=== PATIENT | female | born 1980 | race Caucasian/White ===

== ENCOUNTER 2020-03-31 10:29 | Emergency (ER) | payer OTHER ==
[~2020-03-31] VITALS: Ht 170.2 cm; Wt 79.4 kg
--- NOTE | 2020-03-31 11:38 | Diagnostic Imaging Report ---
EXAMINATION: CHEST SINGLE (PORTABLE) INDICATION: ^Y ^trauma ^[id number] ^[id number] COMPARISON: None FINDINGS: AP view TUBES and LINES: None. LUNGS: Lungs are well inflated. Lungs are clear. There is no evidence of pneumonia or pulmonary edema. PLEURA: No pleural effusion or pneumothorax. HEART AND MEDIASTINUM: The cardiomediastinal silhouette is unremarkable. BONES AND SOFT TISSUES: No acute osseous lesion. Soft tissues are unremarkable. UPPER ABDOMEN: No free air under the diaphragm. IMPRESSION: No acute thoracic radiographic abnormality. Signed by: Edenilson Montenegro MD on 03/31/2020 11:35 AM
--- NOTE | 2020-03-31 11:39 | Diagnostic Imaging Report ---
SHOULDER LEFT 1 VIEW - 3 views HISTORY: Pain. COMPARISON: None available. FINDINGS: Bones: No acute displaced fracture. Osseous alignment is within normal limits. Joints: Mild acromioclavicular arthrosis. Soft tissues: The soft tissues appear unremarkable. IMPRESSION: No acute radiographic abnormality. Signed by: Edenilson Montenegro MD on 03/31/2020 11:36 AM
[2020-03-31] MEDS ORDERED: HYDROCODONE/APAP 10MG-325MG TAB PO ONE (11:45)
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
[2020-03-31] MEDS ORDERED: ULTRAM50 MG PO (12:57)
[2020-03-31] MEDS ORDERED: AUGMENTIN 875-1 EACH PO (12:57)
[2020-03-31] MEDS ORDERED: TETANUS/DIPHTHERIA TOX ADULT 0.5 ML SYR IM ONE (13:00)
--- NOTE | 2020-03-31 13:36 | Diagnostic Imaging Report ---
Exam: Head CT without contrast History: Trauma Comparison studies: None Technique: Axial images were obtained from the skull base to the vertex. Coronal and sagittal images reconstructed from the axial data. Dose modulation, iterative reconstruction, and/or weight based adjustment of the mA/kV was utilized to reduce the radiation dose to as low as reasonably achievable. Radiation dose: Total DLP: 1210 mGy*cm. Estimated effective dose: DLP x 0.015 Intravenous contrast: None Findings: Scalp: Laceration with soft tissue defect in the right paramedian frontal scalp. No retained hyperdense foreign body. Bones: No fractures, blastic or lytic lesions. Brain sulci: Appropriate for age. Ventricles: Normal in size and configuration. No hydrocephalus. Extra-axial spaces: No masses, no fluid collection. Parenchyma: No abnormal densities. No masses, acute hemorrhage, acute or chronic vascular insults. Sellar/suprasellar region: No abnormalities. Craniocervical junction: Patent foramen magnum. No Chiari one malformation. IMPRESSION: 1. Right frontal scalp laceration. 2. No retained hyperdense foreign body, fracture or intracranial abnormality. Signed by: Dr. Surya Lawson M.D. on 03/31/2020 1:33 PM
--- NOTE | 2020-03-31 13:43 | Diagnostic Imaging Report ---
History: Trauma Comparison studies: None Technique: Axial images were obtained through the cervical region. Coronal and sagittal images reconstructed from the axial data. Dose modulation, iterative reconstruction, and/or weight based adjustment of the mA/kV was utilized to reduce the radiation dose to as low as reasonably achievable. Intravenous contrast: None Findings: Atlantoaxial articulation: Intact. Alignment: Mild reversal the usual cervical lordotic curvature centered at C5-C6. Cervicomedullary junction: No abnormalities. The foramen magnum is patent. Soft tissues: No gross acute abnormalities. Vertebrae: No fractures, infection or neoplasm. Degenerative changes: Mildly degenerated C5-C6 discs with disc osteophyte complexes which indent the thecal sac do not result significant canal stenosis. Mild multilevel facet and uncovertebral arthrosis with mild foraminal stenosis on the right at C6-C7. IMPRESSION: 1. No cervical spine fracture or subluxation. 2. Mild degenerative changes as described. 3. Ligament, spinal cord and or vascular abnormalities cannot be excluded on the basis of this examination Signed by: Dr. Surya Lawson M.D. on 03/31/2020 1:39 PM
== END 2020-03-31 14:08 | disposition home or self-care (01) ==
LOC: ER 10:29
DX: S01.81XA Laceration without foreign body of other part of head, initial encounter (principal); S40.211A Abrasion of right shoulder, initial encounter; W22.09XA Striking against other stationary object, initial encounter; Y92.832 Beach as the place of occurrence of the external cause
CPT/HCPCS: 70450; 71045; 72125; 73020; 90714; 99284

== ENCOUNTER 2020-04-03 08:18 | Observation (INO) | payer OTHER ==
[~2020-04-03] VITALS: Ht 172.7 cm; Wt 97.5 kg
[~2020-04-03 08:18] MED LIST: AUGMENTIN 875-1 EACH PO; ULTRAM50 MG PO
[2020-04-03] MEDS ORDERED: SODIUM CHLORIDE 0.9% 1000ML 1,000 ML IV STA (08:37)
[2020-04-03] MEDS ORDERED: FAMOTIDINE 20 MG/2 ML VIAL IV STA (08:43)
[2020-04-03] MEDS ORDERED: METHYLPREDNISOLONE SOD SUCC 125 MG/2ML VIAL IV STA (08:43)
[2020-04-03] MEDS ORDERED: DIPHENHYDRAMINE HCL INJ 50 MG/ML VIAL IV ONE (08:45)
[2020-04-03 08:55] LABS: BASOPHILS # (AUTO) 0.1 (0.0-0.1); BASOPHILS % 0.8 % (0.0-1.0); EOSINOPHILS # (AUTO) 0.2 (0.0-0.4); EOSINOPHILS % 2.6 % (0.0-6.0); HEMATOCRIT 43.4 % (34.2-44.1); HEMOGLOBIN 13.8 g/dL (12.0-16.0); LYMPHOCYTES # (AUTO) 1.5 (1.0-3.2); LYMPHOCYTES % 20.2 % (18.0-39.1); MEAN CORPUSCULAR HEMOGLOBIN 30.5 pg (28-32); MEAN CORPUSCULAR HGB CONC 31.8 g/dL (31-35); MONOCYTES # (AUTO) 0.7 (0.2-0.8); MONOCYTES % 8.9 % (4.4-11.3); NEUTROPHILS % 67.1 % (38.7-80.0); PLATELET COUNT 314 x10e3/uL (140-360); RED BLOOD COUNT 4.52 x10e6/uL (3.6-5.1); RED CELL DISTRIBUTION WIDTH 13.8 % (11.7-14.4)
[2020-04-03 09:11] LABS: CLARITY,URINE CLEAR (CLEAR); COLOR,URINE YELLOW (YELLOW); LEUKOCYTE ESTERASE ,URINE NEGATIVE (NEGATIVE); NITRITE,URINE NEGATIVE (NEGATIVE)
[2020-04-03 09:12] LABS: BILIRUBIN,URINE NEGATIVE (NEGATIVE); KETONES,URINE NEGATIVE (NEGATIVE); PREGNANCY TEST, URINE NEGATIVE (NEGATIVE); PROTEIN,URINE DIPSTICK NEGATIVE (NEGATIVE)
[2020-04-03 09:18] LABS: ALANINE AMINOTRANSFERASE 43 IU/L (0-55); ALBUMIN 3.8 g/dL (3.5-5.0); ALBUMIN/GLOBULIN RATIO 1.2 (0.8-2.0); ALKALINE PHOSPHATASE 83 IU/L (40-150); ANION GAP 13.9 mmol/L (8-16); BLOOD UREA NITROGEN 11 mg/dL (7-26); BUN/CREATININE RATIO 11 (6-25); CARBON DIOXIDE 23 mmol/L (22-29); CHLORIDE 106 mmol/L (98-107); CREATININE, SERUM 0.98 mg/dL (0.57-1.11); EST GLOMERULAR FILTRATION RATE > 60 ML/MIN (60-); GLUCOSE 96 mg/dL (74-118); MAGNESIUM 1.9 MG/DL (1.3-2.1); POTASSIUM 3.9 mmol/L (3.5-5.1); SODIUM 139 mmol/L (136-145)
[2020-04-03] MEDS ORDERED: ONDANSETRON HCL INJ 2MG/ML 2ML 2 MG/ML VIAL IV STA (09:19)
[2020-04-03 09:30] LABS: BACTERIA,URINE FEW /HPF; EPITHELIAL CELLS,URINE MODERATE /LPF; RBC,URINE 0-5 /HPF (0-5); WBC,URINE (MAN) 0-5 /HPF (0-5)
[2020-04-03] MEDS ORDERED: HYDROCODONE/APAP 7.5MG-325MG 1 EA TAB PO ONE (09:30)
[2020-04-03] MEDS: CEFEPIME 2 GM/NS 0.9% 100 ML 100 ML IV SCH ×2 (10:02→20:50)
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
[2020-04-03] MEDS ORDERED: SODIUM CHLORIDE 0.9% 1000ML 1,000 ML IV SCH (10:15)
[2020-04-03] MEDS ORDERED: ONDANSETRON HCL INJ 2MG/ML 2ML 2 MG/ML VIAL IV PRN (10:15)
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
--- NOTE | 2020-04-03 10:33 | NUR ---
Visual Acuity performed and charted per physician orders.
[2020-04-03] MEDS: VANCOMYCIN 1GM/NS 250 ML 250 ML IV SCH ×2 (10:59→21:43)
[2020-04-03] MEDS ORDERED: DOXYCYCLINE 100MG/NS 100ML 100 ML IV SCH (11:00)
--- NOTE | 2020-04-03 11:11 | NUR ---
Received patient via wheelchair from ER. AAOX4 to time, person, place, situation. Respirations even and unlabored. Oriented patient to room. Instructed to use call light for assistance. Voiced understanding.
[2020-04-03 11:29] VITALS: BP 137/84
[2020-04-03 11:55] VITALS: BP 137/84
[2020-04-03] MEDS: DOXYCYCLINE 100MG/NS 100ML 100 ML IV SCH (14:18)
--- NOTE | 2020-04-03 14:50 | NUR ---
Left AC IV discontinued. No signs of infiltration noted. 2x2 gauze and coban placed. Refused wheelchair. Accompanied patient to personal car. AAOX4 to time, person, place, situation. Respirations even and unlabored. Denies pain. Discharge instructions and all personal belongings taken with patient. Addendum: 04/04/20 at 1221 by MADISON FLORES RN ERROR
[2020-04-03] MEDS: HYDROCODONE/APAP 7.5MG-325MG 1 EA TAB PO PRN ×2 (15:25→20:50)
[2020-04-03 15:51] VITALS: BP 134/78
--- NOTE | 2020-04-03 19:14 | NUR ---
Report given to oncoming nurse of patient's status. Resting in bed. AAOX4 to time, person, place, situation. Respirations even and unlabored. Side rails upx2, Call light within reach.
[2020-04-03 20:46] VITALS: BP 125/82
[2020-04-03 21:00] VITALS: BP 125/82
[2020-04-03] MEDS ORDERED: HYDRALAZINE HCL 20 MG/ML VIAL IV PRN (21:30)
[2020-04-03] MEDS ORDERED: ACETAMINOPHEN 325 MG TAB PO PRN (21:30)
[2020-04-04 00:49] VITALS: BP 109/67
[2020-04-04] MEDS: DOXYCYCLINE 100MG/NS 100ML 100 ML IV SCH (02:45)
[2020-04-04] MEDS: HYDROCODONE/APAP 7.5MG-325MG 1 EA TAB PO PRN ×2 (02:56→08:15)
[2020-04-04 05:27] VITALS: BP 125/92
[2020-04-04 06:05] LABS: BASOPHILS % 0.2 % (0.0-1.0); EOSINOPHILS % 0.1 % (0.0-6.0); HEMATOCRIT 39.5 % (34.2-44.1); HEMOGLOBIN 12.4 g/dL (12.0-16.0); LYMPHOCYTES # (AUTO) 1.7 (1.0-3.2); MEAN CORPUSCULAR HEMOGLOBIN 31.1 pg (28-32); MEAN CORPUSCULAR HGB CONC 31.4 g/dL (31-35); MONOCYTES % 6.9 % (4.4-11.3); NEUTROPHILS # (AUTO) 11.2 (2.1-6.9); NEUTROPHILS % 80.1 % (38.7-80.0); PLATELET COUNT 270 x10e3/uL (140-360); RED BLOOD COUNT 3.99 x10e6/uL (3.6-5.1); RED CELL DISTRIBUTION WIDTH 13.9 % (11.7-14.4)
[2020-04-04 06:39] LABS: ANION GAP 10.2 mmol/L (8-16); BLOOD UREA NITROGEN 11 mg/dL (7-26); BUN/CREATININE RATIO 13 (6-25); CALCIUM 8.6 mg/dL (8.4-10.2); CARBON DIOXIDE 23 mmol/L (22-29); CHLORIDE 111 mmol/L (98-107); CREATININE, SERUM 0.83 mg/dL (0.57-1.11); EST GLOMERULAR FILTRATION RATE > 60 ML/MIN (60-); GLUCOSE 94 mg/dL (74-118); POTASSIUM 4.2 mmol/L (3.5-5.1); SODIUM 140 mmol/L (136-145)
[2020-04-04] MEDS ORDERED: SODIUM CHLORIDE 0.9% 250ML 250 ML ONE (07:11)
[2020-04-04 07:49] VITALS: BP 103/61
[2020-04-04 08:03] VITALS: BP 103/61
[2020-04-04] MEDS: CEFEPIME 2 GM/NS 0.9% 100 ML 100 ML IV SCH (08:15)
[2020-04-04] MEDS ORDERED: FAMOTIDINE 20 MG/2 ML VIAL IV SCH (09:00)
[2020-04-04] MEDS: VANCOMYCIN 1GM/NS 250 ML 250 ML IV SCH (09:30)
[2020-04-04] MEDS ORDERED: DOXYCYCLINE HY100 MG PO (10:05)
[2020-04-04] MEDS ORDERED: TYLENOL WITH C1 EACH PO (10:05)
[2020-04-04] MEDS ORDERED: ONDANSETRON HCL 4 MG ORAL DISINTEGRATING TAB PO PRN (10:15)
--- NOTE | 2020-04-04 11:01 | NUR ---
Left AC IV discontinued. No signs of infiltration noted. 2x2 gauze and coban placed. Taken via wheelchair to personal car. AAOX4 to time, person, place, situation. Respirations even and unlabored. Denies pain. Right forehead sutures well approximated. Site clean,dry, and intact. Discharge instructions, rx, and all personal belongings taken with patient.
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
== END 2020-04-04 11:01 | disposition home or self-care (01) ==
LOC: ER 08:18 → ERHOLD 10:05 → MED/SURG2 11:13
PROVIDERS: ADMIT Internal Medicine; ATTEND Internal Medicine
DX: L03.211 Cellulitis of face (principal); S01.82XD Laceration with foreign body of other part of head, subsequent encounter; W18.39XD Other fall on same level, subsequent encounter; E66.9 Obesity, unspecified; Z68.32 Body mass index [BMI] 32.0-32.9, adult; Z11.59 Encounter for screening for other viral diseases
CPT/HCPCS: 36415 ×2; 70450; 70486; 80048; 80053; 81001; 81025; 83735; 85025 ×2; 87040; 87086; 87635; 94760; 99251; 99284; G0378 ×2; J1200; J2405; J2930; J3370 ×2; J7030; J7050